=== PATIENT | male | born 1980 | race Caucasian/White ===

== ENCOUNTER 2025-06-20 09:34 | Outpatient (REF) | payer OTHER, SELFPAY ==
--- OUTSIDE RECORDS SUMMARY | 2025-06-20 10:21 | XMS_ITS | Clinical Summary ---
Author Organization [facility] ity Address [address] [place] [address] Care Team Providers Care Nuclear Criticality Safety Engineer Name Role Phone Scott Louis MD Primary Care Provider [phone] Allergies No known active allergies Medications pantoprazole (PROTONIX) 40 mg EC tablet Take 1 tablet (40 mg total) by mouth every morning on an empty stomach. 06/14/2023 Active Active Problems Problem Noted Date Diagnosed Date Change in bowel habits 06/12/2023 Right sided abdominal pain 06/12/2023 RUQ pain 04/24/2023 Overview (11/14/2024): Added automatically from request for surgery [id number] Sprain of wrist, right, subsequent encounter Surgical History Surgery Date Site/Laterality Comments UPPER GASTROINTESTINAL ENDOSCOPY 05/08/2023 N/A PROCEDURE:UPPER GASTROINTESTINAL ENDOSCOPY;COMMENT:Procedure: UPPER ENDOSCOPY-EGD; Surgeon: Arlyn Solano MD; Location: [facility]; Service: Gastroenterology; Laterality: N/A; COLONOSCOPY 06/22/2023 N/A PROCEDURE:COLONOSCOPY;COMMENT :Procedure: COLONOSCOPY; Surgeon: Arlyn Solano MD; Location: [facility]; Service: Gastroenterology; Laterality: N/A; Medical History Medical History Date Comments Post-traumatic osteoarthriti s of right wrist 08/13/2018 DX:Post-traumatic osteoarthr itis of right wrist Family History Medical History Relation Name Comments No Known Problems Father No Known Problems Mother Relation Name Status Comments Father Mother Social History Tobacco Use Types Packs/Day Years Used Date Smoking Tobacco: Former Cigarettes 0 09/11/1999 - 09/11/2012 Smokeless Tobacco: Never Alcohol Use Standard Drinks/Week Comments Yes 0 (1 standard drink = 0.6 oz pur e alcohol) Sex and Gender Information Value Date Recorded Sex Assigned at Not on file Legal Sex Male 2:47 AM EST Gender Identity Not on file Sexual Orientation Not on file Obstetrics History Last Filed Vital Signs Vital Sign Reading Time Taken Comments Blood Pressure 139/80 03/07/2023 12:19 PM EDT Pulse 56 03/07/2023 12:19 PM EDT Temperature - - Respiratory Rate - - Oxygen Saturation - - Inhaled Oxygen Concentration - - Weight 86.2 kg (190 lb) 03/07/2023 12:19 PM EDT Height 177.8 cm (5' 10 ) 03/07/2023 12:19 PM EDT Body Mass Index 27.26 03/07/2023 12:19 PM EDT Plan of Treatment Health Maintenance Due Date Last Done Comments DTaP,Tdap,and Td Vaccines (1 - Tdap) 2001 Hepatitis B Vaccines (1 of 3 - 19+ 3-dose series) 2001 HPV Vaccines (1 - 3-dose SCD M series) 2009 Cholesterol Screening (Lipid Panel) 10/15/2023 HIV Screening 10/15/2023 Social Influencers of Health Screening 10/15/2023 Depression Screening 09/11/2024 COVID-19 Vaccine (1 - 2023-2 5 season) 2025 Influenza Vaccine (#1) 2025 RSV Immunization Adult Patie nts (1 - 1-dose 75+ series) 2057 Hepatitis C Screening Completed 03/07/2023 HIB Vaccines Aged Out No longer eligi ble based on patient's age to complete this topic Hepatitis A Vaccines Aged Out No long er eligible based on patient's age to complete this topic IPV Vaccines Aged Out No longer eligi ble based on patient's age to complete this topic MMR Vaccines Aged Out No longer eligi ble based on patient's age to complete this topic Meningococcal ACWY Vaccine Aged Out N o longer eligible based on patient's age to complete this topic Meningococcal B Vaccine Aged Out No l onger eligible based on patient's age to complete this topic Pneumococcal Vaccine: Pediat rics (0 to 5 Years) and At-Risk Patients (6 to 49 Years) Aged Out No longer eligi ble based on patient's age to complete this topic RSV Immunization Patients Un julieta 20 months Aged Out No longer eligible b ased on patient's age to complete this topic Varicella Vaccines Aged Out No longer eligible based on patient's age to complete this topic Procedures Procedure Name Priority Date/Time Associated Diagnosis Comments HEPATITIS C SCREENING Routine 03/07/2023 from Last 3 Months or Most Recently Relevant to Health Maintenance Results * Hepatitis C Screening (03/07/2023) Hepatitis C Screening abstracted us Historical Provider HEALTH MAINTENANCE Final Result from Last 3 Months or Most Recently Relevant to Health Maintenance Care Teams Nuclear Criticality Safety Engineer Relationship Specialty Start Date End Date Scott Louis MD [address] [place] [address] [place] [address] PCP - General 03/15/23
--- OUTSIDE RECORDS SUMMARY | 2025-06-20 10:21 | XMS_ITS | Encounter Summary ---
Author Organization [facility] Address [address] [place] [address] Care Team Providers Care Head Golf Coach Name Role Phone Md, Unknown Primary Care Provider Unavailabl e Reason for Referral * Imaging (Emergency) - Closed Specialty Diagnoses / Procedures Referred By Obdulia saunders Referred To Contact Radiology Diagnoses Right lower quadrant pain Other chronic pain Procedures CT ABDOMEN PELVIS WO IV CONTRAST Aby Awad DO Phone: tel: fax: [facility] Radiology - Central Scheduling CT Phone: tel: fax: Referral ID Status Reason Start Date Expiration Date V isits Requested Visits Authorized [id number] Closed Perform Procedure 02/14/2023 02/14/2024 1 1 Encounter Details Date Type Department Care Team (Late st Contact Info) Description 02/14/2023 Ancillary Orders [facility] Radiology, Outpatient Center (CT Scan) [address] [place] [address] Aby Awad DO [address] [place] [address] Right lower quadrant pain; Other chronic pain Social History Tobacco Use Types Packs/Day Years Used Date Smoking Tobacco: Never Assessed Sex and Gender Information Value Date Recorded Sex Assigned at Not on file Legal Sex Male 9:21 AM EDT Gender Identity Not on file Sexual Orientation Not on file documented as of this encounter Plan of Treatment Not on file documented as of this encounter Results * CT ABDOMEN PELVIS WO IV CONTRAST (02/14/2023 3:25 PM EDT) Anatomical Region Laterality Modality Body Computed Tomogra phy 02/14/2023 4:17 PM EDT Impressions 02/14/2023 4:25 PM EDT Splenomegaly with mild to moderate mesenteric adenopathy of uncertain etiology with also mild soft tissue fullness in the pancreatic head region described. Clinical correlation and appropriate follow-up recommended including possible further evaluation with enhanced CT with intravenous and oral contrast, pre and postcontrast MRI with MRCP, positron emission tomography or interval follow-up CT for stability or resolution. Possible 8 mm right lower lobe pulmonary nodule, follow-up low-dose unenhanced CT examination of the chest recommended. Placed in pathway: Incidental Lung Nodule Narrative 02/14/2023 4:25 PM EDT PROCEDURE: CT ABDOMEN PELVIS WO IV CONTRAST CLINICAL HISTORY: Right lower quadrant pain, Other chronic pain, chronic RLQ pain, evaluate for appendicitis COMPARISON: None. PROTOCOL: Axial helical images from diaphragm through ischial tuberosities without I.V. contrast with multiplanar reformations. CT DOSE: ACR accredited CT equipment and radiation dose reduction techniques were employed. CTDIvol: 10.0 mGy. DLP: 531 mGy-cm. FINDINGS: Abdomen: Lung bases: Minimal likely atelectasis. Possible 8 mm right lower lobe pulmonary nodule. Liver: Borderline in size. Gallbladder: Contracted. Pancreas: Mild soft tissue fullness in the region of pancreatic head with some ill-definition of the fat plane between the pancreas and duodenum could be motion artifact, focal pancreatitis, other pathology. Adrenal glands: Normal. Spleen: Enlarged, 15.1 cm. Kidneys: No hydronephrosis. Bowel: Mild mesenteric adenopathy up to about 11 x 20 mm. Somewhat prominent gastric distention, perhaps recent large meal. Gas fluid level proximal duodenum, no abnormal dilatation, could be ileus. Appendix retrocecal, normal. No free air. Abdominal wall: Abdominal aorta normal in caliber. Mild degenerative appearing changes. Pelvis: Urinary bladder: Moderately distended. Prostate gland: Mildly enlarged. Pelvic wall: Iliac vessels normal in caliber. Bowel: Scattered diverticula in sigmoid with diffuse wall thickening likely physiologic due to submaximal distention. Procedure Note Benedict Reyes MD - 02/14/2023 PROCEDURE: CT ABDOMEN PELVIS WO IV CONTRAST CLINICAL HISTORY: Right lower quadrant pain, Other chronic pain, chronicRLQ pain, evaluate for appendicitis COMPARISON: None. PROTOCOL: Axial helical images from diaphragm through ischialtuberosities without I.V. contrast with multiplanar reformations. CT DOSE: ACR accredited CT equipment and radiation dose reductiontechniques were employed. CTDIvol: 10.0 mGy. DLP: 531 mGy-cm. FINDINGS: Abdomen: Lung bases: Minimal likely atelectasis. Possible 8 mm right lower lobepulmonary nodule. Liver: Borderline in size. Gallbladder: Contracted. Pancreas: Mild soft tissue fullness in the region of pancreatic head withsome ill-definition of the fat plane between the pancreas and duodenumcould be motion artifact, focal pancreatitis, other pathology. Adrenal glands: Normal. Spleen: Enlarged, 15.1 cm. Kidneys: No hydronephrosis. Bowel: Mild mesenteric adenopathy up to about 11 x 20 mm. Somewhatprominent gastric distention, perhaps recent large meal. Gas fluid levelproximal duodenum, no abnormal dilatation, could be ileus. Appendixretrocecal, normal. No free air. Abdominal wall: Abdominal aorta normal in caliber. Mild degenerativeappearing changes. Pelvis: Urinary bladder: Moderately distended. Prostate gland: Mildly enlarged. Pelvic wall: Iliac vessels normal in caliber. Bowel: Scattered diverticula in sigmoid with diffuse wall thickeninglikely physiologic due to submaximal distention. IMPRESSION: Splenomegaly with mild to moderate mesenteric adenopathy of uncertainetiology with also mild soft tissue fullness in the pancreatic head regiondescribed. Clinical correlation and appropriate follow-up recommendedincluding possible further evaluation with enhanced CT with intravenousand oral contrast, pre and postcontrast MRI with MRCP, positron emissiontomography or interval follow-up CT for stability or resolution. Possible 8 mm right lower lobe pulmonary nodule, follow-up low-doseunenhanced CT examination of the chest recommended. Placed in pathway: Incidental Lung Nodule us Aby Awad DO IMG CT PROCEDURES Final Result documented in this encounter Visit Diagnoses Diagnosis Right lower quadrant pain Other chronic pain Right lower quadrant pain Other chronic pain documented in this encounter Care Teams Head Golf Coach Relationship Specialty Start Date End Date Md Unknown 1 Dont Change PCP - General 02/14/23 documented as of this encounter
--- OUTSIDE RECORDS SUMMARY | 2025-06-20 10:21 | XMS_ITS ---
Author Name [facility] Organization Unknown History of Medication Use Medication Directions Dispensed Refills Start Date End Date Stat us benzonatate (TESSALON) 200 MG capsule Take 1 capsule (200 mg total) by mouth 3 (three) times a day as needed for cough. 12/18/2023 12/26/2023 active fluticasone (FloNASE) 50 mcg/spray nasal spray 1 spray into each nostril daily. 12/18/2023 12/26/2023 active amoxicillin (AMOXIL) 875 MG tablet Take 1 tablet (875 mg total) by mouth 2 (two) times a day. 08/09/2023 08/17/2023 active ciprofloxacin (CIPRO) 500 MG tablet Take 1 tablet (500 mg total) by mouth 2 (two) times a day. 02/13/2023 08/09/2023 active metroNIDAZOLE (FLAGYL) 500 MG tablet Take 1 tablet (500 mg total) by mouth 3 (three) times a day. Take with meals or food to reduce stomach upset. 02/13/2023 08/09/2023 active cholecalciferol (VITAMIN D3) 1000 units capsule Take by mouth daily. 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-13 ProblemAct [facility] Other male erectile dysfunction active 2023-02-13 ProblemAct [facility] Sprain of wrist, right, subsequent encounter active 2018-05-31 ProblemAct [facility] Viral upper respiratory tract infection active EncounterDiagnosisAct [facility] Right lower quadrant pain active 2023-02-13 ProblemAct [facility] Other hyperlipidemia active 2023-02-13 ProblemAct [facility] Tinnitus of both ears active 2022-12-22 ProblemAct [facility] Other chest pain active 2023-02-13 ProblemAct [facility] Right shoulder pain active 2023-02-13 ProblemAct [facility] Encounters Encounter Type Encounter Reason Primary Diagnosis Location Date Ambulatory Annual Exam Annual Exam [facility] 04/26/2024 Ambulatory Contact with and (suspected) exposure to covid-19 Contact with and (suspected) exposure to covid-19 [facility] 12/18/2023 Ambulatory Acute pharyngitis, unspecified Acute pharyngitis, unspecified [facility] 08/09/2023 Ambulatory 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 [facility] 06/22/2023 Ambulatory Right upper quadrant pain Right upper quadrant pain [facility] 05/08/2023 Ambulatory Right upper quad rant pain [facility] 02/23/2023 Ambulatory Right lower quad rant pain [facility] 02/14/2023 Ambulatory Right lower quad rant pain [facility] 02/13/2023 Ambulatory Insomnia, unspecified [facility] 12/13/2022 Care Team Organization Name Specialty Phone Email Start Date End [facility] 07/14/2023 025 [facility] 12/17/2024 [facility] 02/15/2023 [facility] 02/14/2023 06/0 02/2023 [facility] 12/13/2022 11/28/19 [facility] 12/13/2022 12/14/19 [facility]
--- OUTSIDE RECORDS SUMMARY | 2025-06-20 10:21 | XMS_ITS | Clinical Summary ---
Author Organization [facility] Address [address] [place] [address] Care Team Providers Care Pictures Editor Name Role Phone Unavailable Primary Care Provider Unavailabl e Allergies No known active allergies Medications fluticasone (FloNASE) 50 mcg/spray nasal sprayIndications :Viral upper respiratory tract infection 1 spray into each nostril daily. 1 each 12/18/2023 Active Active Problems Problem Noted Date Diagnosed Date Anxiety 04/26/2024 Right upper quadrant abdominal pain 02/23/2023 Other chest pain 02/13/2023 02/13/2023 Other hyperlipidemia 02/13/2023 02/13/2023 Other male erectile dysfunction 02/13/2023 02/13/2023 Pigmented nevus 02/13/2023 02/13/2023 Right shoulder pain 02/13/2023 02/13/2023 Right lower quadrant pain 02/13/2023 Tinnitus of both ears 12/22/2022 Sprain of wrist, right, subsequent encounter 02/13/2023 Immunizations Immunization Administration Dates Next Due Anthrax 12/29/2023, 2,07/06/2004,10/31,04/22/2003,10/29/2002,10/15/2002 ,10/01/2002 H1N1 Inj 01/08/2010 Hep A / Hep B 01/06/2012 Hepatitis A 09/21/2001,11/16/2000 Hepatitis B 07/13/2013,11/09/2011 IPV 11/16/2000 Influenza (AFLURIA/FLUZONE) Inactivated/Split Quadrivalent with Preservative IM 06/27/2021,07/16/2018 Influenza Inactivated/Split Preservative Free IM 07/16/2018,07/13/2013,09/22/2012,09/17 Influenza Live (FLUMIST) Prince drivalent Attenuated Intranasal 08/15/2015,07/11/2014 Influenza Live Attenuated Intranasal 06/13/2009, 08/01/2007,09/29/2004 Influenza Split 10/16/2010, 9,08/14/2006,08/07 Influenza Whole 08/07/2005, 3,07/04/2002,09/21,11/16/2000 Influenza, Quadrivalent (FLU ARIX, AFLURIA, FLULAVAL, FLUZONE) Preservative Free IM 08/24/2023,06/30/2022,07/21/2020,06/16 Influenza, Quadrivalent (FLU CELVAX) MDCK, Preservative Free IM 07/15/2017 MMR 12/29/2023 Meningococcal Polysaccharide 11/16/2000 PPD Test 04/22/2003, 2,11/23/2001,11/16 Smallpox 10/27/2002 Tdap 11/17/2023,07/13/2013 Tetanus 11/09/2011 Typhoid Inactivated 12/29/2023,12/04/2015,2011 Yellow Fever 09/21/2001 Family History Medical History Relation Name Comments Colon cancer Paternal Grandfather Relation Name Status Comments Brother Alive Father Alive Mother Alive Paternal Grandfather Social History Tobacco Use Types Packs/Day Years Used Date Smoking Tobacco: Former Cigarettes Smokeless Tobacco: Never Tobacco Cessation:Counseling Given: Not Answered Comments:Former age 16-31 , 1 pack/day Alcohol Use Standard Drinks/Week Comments Yes 0 (1 standard drink = 0.6 oz pur e alcohol) Occasional Sex and Gender Information Value Date Recorded Sex Assigned at Male 02/13/2023 2:31 PM EDT Legal Sex Male 12:44 PM EDT Gender Identity Male 02/13/2023 2:31 PM EDT Sexual Orientation Heterosexual (straight) 04/26 1:07 PM EDT Occupation Industry Job Start Date Job End Date Not on file Not on file Not on file Not on file ,[employer] Not on file Not on file Not on file Last Filed Vital Signs Vital Sign Reading Time Taken Comments Blood Pressure 120/64 04/26/2024 7:55 AM EDT Pulse 78 04/26/2024 7:55 AM EDT Temperature 36.4 C (97.5 F) 04/26/2024 7:55 AM EDT Respiratory Rate 18 08/09/2023 8:18 AM EST Oxygen Saturation 96% 12/18/2023 9:30 AM EDT Inhaled Oxygen Concentration - - Weight 87.5 kg (193 lb) 04/26/2024 7:55 AM EDT Height 177.2 cm (5' 9.75 ) 04/26/2024 7:55 AM ED T Body Mass Index 27.89 04/26/2024 7:55 AM EDT Plan of Treatment Health Maintenance Due Date Last Done Comments Hepatitis C Virus Screening 1982 HIV Screening 1995 Influenza Vaccine 04/11/2025 08/24/2023, , 06/27/2021, Additional history exists COVID-19 Vaccine ( season) 2025 01/06/2021, 12/01/2020 DTaP/Tdap/Td Vaccines (3 - Td or Tdap) 11/16/2033 11/17/2023, 07/13/2013 Hepatitis B Vaccines Completed 07/13/2013, 01/06/2012, 11/09/2011 HPV Vaccines (No Doses Required) Completed Pneumococcal Vaccine: Pediatric (0-5 Years) and At-Risk Patients (6 to 49 Years) Aged Out No longer eligible based on patient's age to complete this topic Insurance [facility] [employer] [facility] [employer]
--- OUTSIDE RECORDS SUMMARY | 2025-06-20 10:21 | XMS_ITS | Encounter Summary ---
Author Organization [facility] Address [address] [place] [address] Care Team Providers Care Medical Lead Name Role Phone Scott Louis MD Primary Care Provider [phone] Encounter Details Date Type Department Care Team (Late st Contact Info) Description 02/14/2023 Scanned Document [facility] Department of Internal Medicine [address] [place] [phone] Scott Louis MD [address] [place] [phone] Social History Tobacco Use Types Packs/Day Years Used Date Smoking Tobacco: Never Assessed Sex and Gender Information Value Date Recorded Sex Assigned at Male 02/13/2023 2:31 PM EDT Legal Sex Male 12:44 PM EDT Gender Identity Male 02/13/2023 2:31 PM EDT Sexual Orientation Heterosexual (straight) 04/26 1:07 PM EDT documented as of this encounter Plan of Treatment Not on file documented as of this encounter Visit Diagnoses Not on filedocumented in this encounter Care Teams Medical Lead Relationship Specialty Start Date End Date Scott Louis MD [address] [place] [address] PCP - General 11/25/24 documented as of this encounter
--- OUTSIDE RECORDS SUMMARY | 2025-06-20 10:21 | XMS_ITS | Encounter Summary ---
Author Organization [facility] Address [address] [place] [address] Care Team Providers Care Mica Miner Blasting Name Role Phone Scott Louis MD Primary Care Provider [phone] Encounter Details Date Type Department Care Team (Late st Contact Info) Description 02/28/2023 Scanned Document [facility] Department of Internal Medicine [address] [place] [phone] Scott Louis MD [address] [place] [phone] Social History Tobacco Use Types Packs/Day Years [...] on file documented as of this encounter Procedures Procedure Name Priority Date/Time Associated Diagnosis Comments LAB RESULT 02/28/2023 6:07 PM EDT documented in this encounter Results * LAB RESULT (02/28/2023 6:07 PM EDT) us Scott Louis MD HX AMB PROCEDURES Final Resul t documented in this encounter Visit Diagnoses Not on filedocumented in this encounter Care Teams Mica Miner Blasting Relationship Specialty Start Date End Date Scott Louis MD [address] [place] [address] PCP - General 11/25/24 documented as of this encounter
--- OUTSIDE RECORDS SUMMARY | 2025-06-20 10:21 | XMS_ITS | Encounter Summary ---
Author Organization [facility] Address [address] [place] [address] Care Team Providers Care Cold Rolling Supervisor Name Role Phone Scott Louis MD Primary Care Provider [phone] Encounter Details Date Type Department Care Team (Late st Contact Info) Description 02/27/2023 Scanned Document [facility] Department of Internal Medicine [address] [place] [phone] Scott Louis MD [address] [place] [phone] Social History Tobacco Use Types Packs/Day Years [...] Priority Date/Time Associated Diagnosis Comments LAB RESULT 02/27/2023 5:06 PM EDT documented in this encounter Results * LAB RESULT (02/27/2023 5:06 PM EDT) us Scott Louis MD HX AMB PROCEDURES Final Resul t documented in this encounter Visit Diagnoses Not on filedocumented in this encounter Care Teams Cold Rolling Supervisor Relationship Specialty Start Date End Date Scott Louis MD [address] [place] [address] PCP - General 11/25/24 documented as of this encounter
--- OUTSIDE RECORDS SUMMARY | 2025-06-20 10:21 | XMS_ITS | Clinical Summary ---
Author Organization [facility] Address [address] [place] [address] Care Team Providers Care Technical Program Manager Name Role Phone Scott Louis MD Primary Care Provider [phone] Allergies No known active allergies Medications Medication Sig Dispensed Refills Start Date End Date Status pantoprazole (PROTONIX) 40 MG tabletIndications:RUQ pain Take 1 tablet (40 mg total) by mouth every morning on an empty stomach. 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 05/31/2018 Family History Medical History Relation Name Comments No Sig Med Hx Father No Sig Med Hx Mother Relation Name Status Comments Father Mother Social History Tobacco Use Types Packs/Day Years Used Date Smoking Tobacco: Former Cigarettes 2012 Smokeless Tobacco: Never Alcohol Use Standard Drinks/Week Comments Yes 0 (1 standard drink = 0.6 oz pur e alcohol) 2 drinks/week Sex and Gender Information Value Date Recorded Sex Assigned at Male 04/27/2023 11:50 AM EDT Gender Identity Not on file Sexual Orientation Not on file Job Start Date Occupation Industry Not on file Not on file Not on file Last Filed Vital Signs Vital Sign Reading Time Taken Comments Blood Pressure 113/77 06/22/2023 9:35 AM EDT Pulse 65 06/22/2023 9:35 AM EDT Temperature 36.1 C (97 F) 06/22/2023 8:16 AM EDT Respiratory Rate 15 06/22/2023 9:35 AM EDT Oxygen Saturation 99% 06/22/2023 9:35 AM EDT Inhaled Oxygen Concentration - - Weight 82.6 kg (182 lb) 06/20/2023 2:45 PM EDT Height 177.8 cm (5' 10 ) 06/20/2023 2:45 PM EDT Body Mass Index 26.11 06/20/2023 2:45 PM EDT Plan of Treatment Health Maintenance Due Date Last Done Comments COVID-19 Vaccine (#1) 1982 Depression Screening 1994 BMI Counseling 2000 Preventative Health Evaluation 2000 DTap / Tdap / Td (2 - Td or Tdap) 07/13/2023 07/13/2013 Influenza Vaccine (#1) 2025 2, 06/27/2021, 07/21/2020, Additional history exists Hepatitis B Vaccines Completed 07/13/2013, 01/06/2012, 11/09/2011 Hepatitis C Screening Completed 03/07/2023 Pneumococcal Vaccine Aged Out No long er eligible based on patient's age to complete this topic RSV Ped < 20 months Aged Out No longe r eligible based on patient's age to complete this topic Advance Directives For more information, please contact: [phone] Latest Code Status on File Code Status Date Activated Date Inactivated Comments Full Code 06/22/2023 9:14 AM 06/22/2023 4:14 PM Thi s code status was ascertained in the following way: discussion with patient . Code Status History Code Status Date Activated Date Inactivated Comments Full Code 05/08/2023 1:16 PM 05/08/2023 8:04 PM This code status was ascertained in the following way: discussion with patient . Care Teams Technical Program Manager Relationship Specialty Start Date End Date Scott Louis MD [address] [place] [address] PCP - General Internal Medicine 03/15/23
--- OUTSIDE RECORDS SUMMARY | 2025-06-20 10:22 | XMS_ITS | Clinical Summary ---
Author Organization [facility] Address [address] [place], [place] [id number] Care Team Providers Care English Instructor Name Role Phone Md, Unknown Primary Care Provider Unavailabl e Social History Tobacco Use Types Packs/Day Years Used Date Smoking Tobacco: Never Assessed Sex and Gender Information Value Date Recorded Sex Assigned at Not on file Legal Sex Male 9:21 AM EDT Gender Identity Not on file Sexual Orientation Not on file Plan of Treatment Health Maintenance Due Date Last Done Comments Hepatitis C Screening 1982 Annual Physical Exam 2000 Tdap and Td Vaccines Adult 2001 COVID-19 Vaccine (2024-2 6 season) 2025 Influenza Vaccine (#1) 2025 HIB Vaccines Aged Out No longer eligi ble based on patient's age to complete this topic HPV Vaccines (No Doses Required) Completed Hepatitis A Vaccines Aged Out No long er eligible based on patient's age to complete this topic IPV Vaccines Aged Out No longer eligi ble based on patient's age to complete this topic Lipid Panel Discontinued Meningococcal Vaccine Aged Out No nidhi claudine eligible based on patient's age to complete this topic Pneumococcal Vaccine: Peds ( 0 to 5 Yrs) and At-Risk Pts (6 to 49 Yrs) Aged Out No lo nger eligible based on patient's age to complete this topic RSV <20 Months Aged Out No longer ana gible based on patient's age to complete this topic Insurance Care Teams English Instructor Relationship Specialty Start Date End Date Md, Unknown 1 Dont Change PCP - General 02/14/23
--- OUTSIDE RECORDS SUMMARY | 2025-06-20 10:22 | XMS_ITS | Encounter Summary ---
Author Organization [facility] Address [address] [place] [address] Care Team Providers Care Baker Helper Name Role Phone Md, Unknown Primary Care Provider Unavailabl e Encounter Details Date Type Department Care Team (Late st Contact Info) Description 02/14/2023 [facility] [address] [facility] [place] [address] Social History Tobacco Use Types Packs/Day Years [...] on filedocumented in this encounter Care Teams Baker Helper Relationship Specialty Start Date End Date Md, Unknown 1 Dont Change PCP - General 02/14/23 documented as of this encounter
[2025-06-20 13:13] LABS: MANUAL DIFF FLAG NO
[2025-06-20 13:24] LABS: Hematocrit 48.9 % (42.0-52.0); Hemoglobin 17.2 g/dl (14.0-18.0); Imm Gran Abs Auto 0.02 X10*3/uL (0.00-0.03); Imm Gran Pct Auto 0.3 % (0.0-0.4); Lymphocytes Absolute Auto 2.1 X10*3/uL (1.2-4.9); Mean Corpuscular HGB Conc 35.2 g/dl (31.0-36.0); Mean Corpuscular Hemoglobin 30.8 pg (27.0-33.0); Mean Corpuscular Volume 87.5 fL (80.0-98.0); NRBC Abs Auto 0.000 X10*3/uL (0.0-0.012); NRBC Pct Auto 0.0 /100WBC (0.0-0.2); Platelet Count 295 X10*3/uL (160-400); Red Blood Count 5.59 X10*6/uL (4.60-5.80); White Blood Count 6.5 X10*3/uL (4.8-10.8)
[2025-06-20 13:53] LABS: Alanine Aminotransferase 28 U/L (0-40); Albumin Level 4.7 g/dL (3.5-5.0); Alkaline Phosphatase 69 U/L (39-117); Anion Gap 12 (12-20); Aspartate Amino Transferase 39 U/L (5-37); Blood Urea Nitrogen 16 mg/dL (9-16); Calcium 9.7 mg/dL (8.4-10.2); Carbon Dioxide 28 mmol/L (22-29); Chloride 104 mmol/L (96-108); Cholesterol 196 mg/dL (<200); Estimated Glomerular Filt Rate > 60; HDL Cholesterol 36 mg/dL (>40); Potassium 4.6 mmol/L (3.3-5.1); Sodium 139 mmol/L (135-145); Total Protein 7.6 g/dL (6.5-8.0); Triglycerides 176 mg/dL (<150)
[2025-06-20 14:03] LABS: Prostate Specific Antigen 1.30 ng/mL (<0.05-4.0)
== END 2025-06-20 09:35 | disposition home or self-care (01) ==
LOC: HO.MANLDS 09:34
PROVIDERS: Visit Provider Internal Medicine
DX: Z12.5 Encounter for screening for malignant neoplasm of prostate (principal); Z13.6 Encounter for screening for cardiovascular disorders; Z82.49 Family history of ischemic heart disease and other diseases of the circulatory system
CPT/HCPCS: 36415; 80053; 80061; 84153; 85025